=== PATIENT | female | born 1970 | race Asian ===

== ENCOUNTER 2020-01-15 13:30 | Emergency (ER) | payer SELFPAY ==
[~2020-01-15] VITALS: Ht 165.1 cm; Wt 55.0 kg
[2020-01-15 13:30] VITALS: BP 141/81
--- NOTE | 2020-01-15 14:07 | RAD ---
PROCEDURE: FOOT RIGHT 3V, ANKLE RIGHT 3V STUDY DATE: 01/15/2020 CLINICAL INDICATION / HISTORY: Reason: RIGHT FOOT INJURY / Spl. Instructions: VERBAL ORDER PER DR CASE / History: . TECHNIQUE: Right ankle 3 views. COMPARISON: None FINDINGS: The ankle mortise is approximated, and the talar dome is unremarkable. The joint space widths are maintained. No fracture or dislocation is identified. No soft tissue swelling is appreciated. IMPRESSION: No acute osseous abnormality. PROCEDURE: FOOT RIGHT 3V, ANKLE RIGHT 3V STUDY DATE: 01/15/2020 CLINICAL INDICATION / HISTORY: Reason: RIGHT FOOT INJURY / Spl. Instructions: VERBAL ORDER PER DR CASE / History: . TECHNIQUE: AP, lateral and oblique views of the right foot. COMPARISON: None FINDINGS: No fracture or dislocation is identified. The bone density is normal. The joint space widths are maintained, and there are no erosions to suggest an inflammatory arthropathy. No soft tissue abnormality is seen. IMPRESSION: No acute osseous abnormality. Electronically signed by: Halima Vega MD (01/15/2020 2:04 PM) [id number]
--- NOTE | 2020-01-15 14:25 | PHYS DOC ---
Past History Past Medical History: UTI Past Surgical History: No Surgical History Alcohol Use: None General Adult EDM: Chief Complaint: FOOT INJURY PAIN HPI: HPI: 49-year-old female presents with right ankle pain. The patient rolled her ankle couple of days ago. Her pain is on the medial side. There is some bruising there. She wants to make sure she has no fracture. She is able to walk on it. She denies any other injuries or complaints at this time. Review of Systems: Review of Systems: Constitutional: Denies fever or chills Eyes: Denies change in visual acuity HENT: Denies nasal congestion or sore throat Respiratory: Denies cough or shortness of breath Cardiovascular: Denies chest pain or edema GI: Denies abdominal pain, nausea, vomiting, bloody stools or diarrhea : Denies dysuria Musculoskeletal: Right ankle pain Integument: Denies rash Neurologic: Denies headache, focal weakness or sensory changes Endocrine: Denies polyuria or polydipsia Lymphatic: Denies swollen glands Psychiatric: Denies depression or anxiety Heart Score: Risk Factors: Risk Factors: DM, Current or recent (<one month) smoker, HTN, HLP, family history of CAD, obesity. Risk Scores: Score 0 - 3: 2.5% MACE over next 6 weeks - Discharge Home Score 4 - 6: 20.3% MACE over next 6 weeks - Admit for Clinical Observation Score 7 - 10: 72.7% MACE over next 6 weeks - Early Invasive Strategies Allergies: Allergies: Allergies Coded Allergies Type Severity Reaction Last Updated Verified No Known Drug Allergies 01/15/20 No Physical Exam: PE: Constitutional: Well developed, well nourished, no acute distress, non-toxic appearance. [] HENT: Normocephalic, atraumatic, bilateral external ears normal, oropharynx moist, no oral exudates, nose normal. [] Eyes: PERRLA, EOMI, conjunctiva normal, no discharge. [] Neck: Normal range of motion, no tenderness, supple, no stridor. [] Cardiovascular:Heart rate regular rhythm, no murmur [] Lungs & Thorax: Bilateral breath sounds clear to auscultation [] Abdomen: Bowel sounds normal, soft, no tenderness, no masses, no pulsatile masses. [] Skin: Warm, dry, no erythema, no rash. [] Back: No tenderness, no CVA tenderness. [] Extremities: No tenderness, no cyanosis, no clubbing, ROM intact, no edema. [] Neurologic: Alert and oriented X 3, normal motor function, normal sensory function, no focal deficits noted. [] Psychologic: Affect normal, judgement normal, mood normal. [] Current Patient Data: Vital Signs: Vital Signs Date Time Temp Pulse Resp B/P (MAP) Pulse Ox O2 Delivery O2 Flow Rate FiO2 01/15/20 13:30 97.2 77 16 141/81 (101) 99 Room Air EKG: EKG: [] Radiology/Procedures: Radiology/Procedures: [] Impressions: PROCEDURE: FOOT RIGHT 3V, ANKLE RIGHT 3V STUDY DATE: 01/15/2020 CLINICAL INDICATION / HISTORY: Reason: RIGHT FOOT INJURY / Spl. Instructions: VERBAL ORDER PER DR CASE / History: . TECHNIQUE: Right ankle 3 views. COMPARISON: None FINDINGS: The ankle mortise is approximated, and the talar dome is unremarkable. The joint space widths are maintained. No fracture or dislocation is identified. No soft tissue swelling is appreciated. IMPRESSION: No acute osseous abnormality. PROCEDURE: FOOT RIGHT 3V, ANKLE RIGHT 3V STUDY DATE: 01/15/2020 CLINICAL INDICATION / HISTORY: Reason: RIGHT FOOT INJURY / Spl. Instructions: VERBAL ORDER PER DR CASE / History: . TECHNIQUE: AP, lateral and oblique views of the right foot. COMPARISON: None FINDINGS: No fracture or dislocation is identified. The bone density is normal. The joint space widths are maintained, and there are no erosions to suggest an inflammatory arthropathy. No soft tissue abnormality is seen. IMPRESSION: No acute osseous abnormality. Electronically signed by: Talia Vega MD (01/15/2020 2:04 PM) [id number] DICTATED AND SIGNED BY: TALIA VEGA MD DATE: 01/15/20 1404 CC: ROBERT CASE DO; PCP,NO ~ Course & Med Decision Making: Course & Med Decision Making Pertinent Labs and Imaging studies reviewed. (See chart for details) The patient's x-ray is negative for fracture. I believe she just has an ankle sprain. We will place her in an air splint. She is stable for discharge at this time. [] Dragon Disclaimer: Dragon Disclaimer: This electronic medical record was generated, in whole or in part, using a voice recognition dictation system. Departure Departure: Impression: Primary Impression: Right ankle sprain Qualified Codes: S93.401A - Sprain of unspecified ligament of right ankle, initial encounter Disposition: 01 DC HOME SELF CARE/HOMELESS Condition: STABLE Referrals: [facility]CP[facility] (PCP) Patient Instructions: Ankle Sprain, Acute, with Phase I Re[facility] ROBERT CASE DO Jan 15, 2020 14:25
== END 2020-01-15 14:26 | disposition home or self-care (01) ==
LOC: ER 13:30
DX: S93.401A Sprain of unspecified ligament of right ankle, initial encounter (principal); Z87.440 Personal history of urinary (tract) infections; X50.9XXA Other and unspecified overexertion or strenuous movements or postures, initial encounter; Y93.89 Activity, other specified; Y92.89 Other specified places as the place of occurrence of the external cause; Y99.8 Other external cause status
CPT/HCPCS: 73610; 73630; 99284

== ENCOUNTER → 2020-01-26 | Outpatient (CLI) | payer OTHER ==
[2020-01-15 13:30] VITALS: BP 141/81
--- NOTE | 2020-01-26 16:25 | RAD ---
Exam: CT abdomen/pelvis without intravenous contrast Indication: Bilateral flank pain Comparison: None Technique: Helical CT imaging performed of the abdomen and pelvis without the use of intravenous contrast. Sagittal and coronal reformats were obtained. One or more of the following individualized dose reduction techniques were utilized for this examination: 1. Automated exposure control 2. Adjustment of the mA and/or kV according to patient size 3. Use of iterative reconstruction technique. Findings: Inherently limited evaluation without intravenous contrast. Lower chest: Lung bases are clear. Heart is normal in size. Liver: Normal. Gallbladder/Biliary Tree: Normal. Pancreas: Normal. Spleen: Normal. Adrenal Glands: Normal. Kidneys/Ureters/Bladder: Kidneys are normal in size. No hydronephrosis or nephrolithiasis. Ureters are nondilated. Urinary bladder is unremarkable. Reproductive Organs: The uterus is enlarged and lobulated with multiple masses, at least one of which is partially calcified. The ovaries are not well visualized. Stomach, small bowel, and colon: The stomach, small bowel, appendix, and colon are normal. Vasculature: Abdominal aorta and inferior vena cava are normal. Lymph Nodes: No lymphadenopathy. Peritoneum and retroperitoneum: No free fluid or free air. Bones: No acute osseous abnormality. Impression: 1. No urolithiasis or hydronephrosis. 2. Enlarged, leiomyomatous uterus. Electronically signed by: Gisselle Bronson MD (01/26/2020 4:23 PM) [id number]
== END ==
LOC: CT 10:15
PROVIDERS: ATTEND Clinical Nurse Specialist Family Health
DX: N85.2 Hypertrophy of uterus (principal)
CPT/HCPCS: 74176

== ENCOUNTER 2020-05-08 16:49 | Emergency (ER) | payer OTHER ==
[~2020-05-08] VITALS: Ht 165.1 cm; Wt 55.0 kg
--- NOTE | 2020-05-08 17:38 | PHYS DOC ---
Past History Past Medical History: UTI (REVA SHAW APRN) Past Surgical History: No Surgical History (REVA SHAW APRN) Alcohol Use: None (REVA SHAW APRN) Adult General Chief Complaint Chief Complaint: EARACHE/EAR PAIN [facility] HPI Patient is a 49-year-old female presents emergency department complaining of being unable to hear out of either ear and having wax stuck in her ears. Patient states that she seen in urgent care earlier in the week and they told her to use Debrox [id number] earwax remover. Patient states that it did not work so she went back to urgent care and was told to go to the emergency department to see if we could remove the wax here. Patient complains of mild pain to both ears, denies fever chills, chest pains, shortness of breath, nasal congestion, chest congestion. Patient denies nausea, vomiting, diarrhea. Patient denies any other physical complaints or physical concerns. Patient reports her last menstrual period was 3 weeks ago. (REVA SHAW APRN) Review of Systems Review of Systems 14 body systems of review of systems have been reviewed. See HPI for pertinent positives and negative responses, otherwise all other systems are negative, nonpertinent or noncontributory. (REVA SHAW APRN) Allergies Allergies Allergies Coded Allergies Type Severity Reaction Last Updated Verified No Known Drug Allergies 01/15/20 No (REVA SHAW APRN) Physical Exam Physical Exam Constitutional: Well developed, well nourished, no acute distress, non-toxic appearance. HENT: Normocephalic, atraumatic, bilateral external ears normal, oropharynx moist, no oral exudates, nose normal. Wax impaction bilateral auditory canals, could not appreciate tympanic membranes of either ear. Eyes: PERRLA, EOMI, conjunctiva normal, no discharge. Neck: Normal range of motion, no tenderness, supple, no stridor. Cardiovascular:Heart rate regular rhythm, no murmur Lungs & Thorax: Bilateral breath sounds clear to auscultation Abdomen: Bowel sounds normal, soft, no tenderness, no masses, no pulsatile masses. Skin: Warm, dry, no erythema, no rash. Back: No tenderness, no CVA tenderness. Extremities: No tenderness, no cyanosis, no clubbing, ROM intact, no edema. Neurologic: Alert and oriented X 3, normal motor function, normal sensory funct ion, no focal deficits noted. Psychologic: Affect normal, judgement normal, mood normal. (REVA SHAW APRN) EKG EKG [] (REVA SHAW APRN) Radiology/Procedures Radiology/Procedures [] (REVA SHAW APRN) Heart Score Risk Factors: Risk Factors: DM, Current or recent (<one month) smoker, HTN, HLP, family history of CAD, obesity. Risk Scores: Risk Factors: DM, Current or recent (<one month) smoker, HTN, HLP, family history of CAD, obesity. (REVA SHAW APRN) Course & Med Decision Making Course & Med Decision Making Pertinent Labs and Imaging studies reviewed. (See chart for details) 49-year-old female, vital signs reviewed, reports emergency department stating that she is unable to hear out of both ears. Physical examination showed wax impaction bilateral ears. Patient states she was using Debrox to remove her was about work. Patient was given 2 5/325 Vicodin tablets for pain. Irrigated bilateral ears with copious amounts of tepid temperature tap water. A #4 sized Cooper ear speculum was placed in the left ear, earwax was removed manually with lighted ear curette. Noted ear wax mixed with cotton ball cotton substance large amount taken out of left ear canal. Left ear canal was then reirrigated with 20 cc tepid temperature tap water, reexamined left ear canal, TM membrane intact, all bony landmarks visible, no signs of infectious process, sign of irritation of the auditory canal. A #4 size Cooper ear speculum was placed in the right ear, earwax was removed manually with lighted ear curette, large justin unt of ear wax mixed with cotton ball substance taken from right ear canal, right ear canal was irrigated with 20 cc tepid temperature tap water, examination revealed tympanic membrane intact with all bony landmarks visible, no signs of infectious process, no irritation of auditory canal. Discussed findings with patient, discussed no longer using blunt objects to clean ear, patient gave verbal understanding of ear cleaning care, follow-up with primary care, will prescribe Cortisporin eardrops for the next 5 days, patient can use [id number] pain medicine Tylenol and or Motrin for discomfort. Return to ER precautions and concerns, patient discharged home. (REVA SHAW APRN) Course & Med Decision Making Do not see or evaluate patient. Did not discuss patient with DENTURE CONTOUR WIRE SPECIALIST. Agree with plan and disposition record and note. (VICENTE GARCIA MD) Dragon Disclaimer Dragon Disclaimer This electronic medical record was generated, in whole or in part, using a voice recognition dictation system. (REVA SHAW APRN) Departure Departure: Impression: Primary Impression: Impacted ear wax Additional Impression: Otitis externa of both ears Referrals: JIMMY LAROSE APRN (PCP) Additional Instructions: Use eardrops as directed, follow-up with your primary care as needed, return to the emergency department for worsening symptoms or other concerns. EMERGENCY DEPARTMENT GENERAL DISCHARGE INSTRUCTIONS Thank you for coming to [facility] (ED) today and trusting us with you care. We trust that you had a positivie experience in our Emergency Department. If you wish to speak to the department management, you may call the director at [phone]. YOUR FOLLOW UP INSTRUCTIONS ARE FOLLOWS: 1. Do you have a private Doctor? If you do not have a private doctor, please ask for a resource list of physicians or clinics that may be able to assist you with follow up care. 2. The Emergency Physician has interpreted your x-rays. The X-Ray specialist will also review them. If there is a change in the findings, you will be notified in 48 hours when at all possible. 3. A lab test or culture has been done, your results will be reviewed and you w ill be notified if you need a change in treatment. ADDITIONAL INSTRUCTIONS AND INFORMATION: 1. Your care today has been supervised by a physician who is specially trained in emergency care. Many problems require more than one evaluation for a complete diagnosis and treatment. We recommend that you schedule your follow up appointment as recommended to ensure complete treatment of you illness or injury. If you are unable to obtain follow up care and continue to have a problem, or if your condition worsens, we recommend that you return to the ED. 2. We are not able to safely determine your condition over the phone nor are we able to give sound medical advice over the phone. For these safety reasons, if you call for medical advice we will ask you to come to the ED for further evaluation. 3. If you have any questions regarding these discharge instructions please call the ED at [phone]. SAFETY INFORMATION: In the interest of safety, wellness, and injury prevention; we encourage you to wear your sealbelt, if you smoke; quite smoking, and we encourage family to use a protective helmet for bicycling and other sporting events that present an increased risk for head injury. IF YOUR SYMPTOMS WORSEN OR NEW SYMPTOMS DEVELOP, OR YOU HAVE CONCERNS ABOUT YOUR CONDITION; OR IF YOUR CONDITION WORSENS WHILE YOU ARE WAITING FOR YOUR FOLLOW UP APPOINTMENT; EITHER CONTACT YOUR PRIMARY CARE DOCTOR, THE PHYSICIAN WHOSE NAME AND NUMBER YOU WERE GIVEN, OR RETURN TO THE ED IMMEDIATELY. Scripts Neomycin/Polymyxin B Sulf/Hc ([id number] EAR SUSP) 10 Ml Drops.susp 3 DROP AD TID for OTITIS EXTERNA for 5 Days, #10 ML 0 Refills Prov: REVA SHAW APRN 05/08/20 Problem Qualifiers Primary Impression: Impacted ear wax Laterality: bilateral Qualified Codes: H61.23 - Impacted cerumen, bilateral Additional Impression: Otitis externa of both ears Otitis externa type: noninfectious Noninfectious otitis externa type: contact Chronicity: acute Qualified Codes: H60.533 - Acute contact otitis externa, bilateral REVA SHAW APRN May 08, 2020 17:37 VICENTE GARCIA MD May 08, 2020 22:23
[2020-05-08] MEDS ORDERED: HYDROcodone/APAP 5/325MG 1 TAB TABLET PO ONE (17:45)
[2020-05-08 19:55] VITALS: BP 130/59
[2020-05-08] MEDS ORDERED: NEOM10DR32 AD (19:57)
== END 2020-05-08 20:02 | disposition home or self-care (01) ==
LOC: ER 16:49
DX: H61.23 Impacted cerumen, bilateral (principal); H60.533 Acute contact otitis externa, bilateral
CPT/HCPCS: 69210; 99284